=== PATIENT | male | born 1945 | race Caucasian/White ===

== ENCOUNTER 2019-06-30 14:46 | Outpatient (CLI) | payer MEDICARE, OTHER ==
--- NOTE | 2019-06-30 16:05 | Diagnostic Imaging Report ---
PATIENT MR#: [id number] PATIENT PATIENT NAME: NELSY MARTINEZ DATE OF : 1945 REFERRING PHYSICIAN: Noy Francois EXAM DATE: 06/30/2019 ACCESSION NUMBER: [id number] EXAM DESCRIPTION: CT ABD PELVIS W/O CO Exam: CT abdomen and pelvis without contrast. History: Left flank pain. Axial images through the abdomen and pelvis without oral or IV contrast is submitted along with sagit teri and coronal reformatted images. The visualized lower lung soto are clear. A small hiatal hernia is noted. No free intraperitoneal air is identified. The gallbladder is markedly distended without stones. The liver, spleen and pancreas are normal atte nuation. The adrenal glands are normal configuration. The abdominal aorta is of normal caliber and associated wit h atherosclerotic plaque. No periaortic lymphadenopathy is identified. Both kidneys are lobulated in configuration and associated with renal stones. No hydronephrosis is i dentified. The urinary bladder is distended and demonstrates thickened real. The small bowel is of normal caliber. Air and stool seen throughout the large intestine. The append ix is not well visualized. Degenerative changes in the lumbar spine and hips are noted. Impression: Small hiatal hernia. Distended gallbladder. Lobulated kidneys without hydronephrosis. Bilateral renal stones. Nonspecific bowel gas pattern. The appendix is not well visualized. Read by: Dr. Jae Perez Transcribed by: Transcribed Date: Electronically signed by: Dr. Jae Perez Date signed: 06/30/2019 4:04:40 PM
== END 2019-06-30 14:55 ==
LOC: RAD 14:46
PROVIDERS: ATTEND Nurse Practitioner Family
DX: M54.5 Low back pain (principal); R31.9 Hematuria, unspecified; R10.9 Unspecified abdominal pain
CPT/HCPCS: 74176